=== PATIENT | male | born 1975 | race Caucasian/White ===

== ENCOUNTER 2022-11-19 13:04 | Emergency (ER) | payer OTHER ==
[~2022-11-19] VITALS: Ht 165.1 cm; Wt 70.3 kg
[~2022-11-19 13:04] MED LIST: AMOCLA875 PO; Mupirocin22 GM TOP
[2022-11-19 13:15] VITALS: BP 141/87
== END 2022-11-19 14:01 | disposition home or self-care (01) ==
LOC: ER 13:04
DX: Z48.02 Encounter for removal of sutures (principal)
CPT/HCPCS: 99281

== ENCOUNTER 2023-03-18 16:20 | Emergency (ER) | payer OTHER ==
[~2023-03-18] VITALS: Ht 165.1 cm; Wt 80.7 kg
[2023-03-18 16:45] VITALS: BP 158/100
== END 2023-03-18 17:38 | disposition home or self-care (01) ==
LOC: ER 16:20
DX: S61.217A Laceration without foreign body of left little finger without damage to nail, initial encounter (principal); W29.3XXA Contact with powered garden and outdoor hand tools and machinery, initial encounter; Z79.899 Other long term (current) drug therapy; Z23 Encounter for immunization
CPT/HCPCS: 12001; 73140; 90471; 90714; 90715; 99283-25